=== PATIENT | male | born 1940 | race Caucasian/White ===

== ENCOUNTER 2017-04-29 02:19 | Observation (INO) ==
[2017-04-29] MEDS ORDERED: PANTOPRAZOLE 40 MG VIAL IV STA (03:52)
[2017-04-29] MEDS ORDERED: SODIUM CHLORIDE 0.9% 500 ML IV STA (03:52)
[2017-04-29] MEDS ORDERED: ASPIRIN 325 MG TABLET PO STA (03:52)
[2017-04-29] MEDS ORDERED: THIAMINE INJ 100 MG, FOLIC ACID INJ 1 MG, MAGNESIUM SULF INJ 2 GM, MULTIVITAMIN INJ 10 ... IV ONE (03:52)
[2017-04-29] MEDS ORDERED: ONDANSETRON 4 MG/2 ML VIAL IV STA (03:52)
[2017-04-29] MEDS ORDERED: THIAMINE 200 MG/2 ML VIAL ONE (04:11)
--- NOTE | 2017-04-29 04:20 | Emergency Department Note ---
Chata Jimenez Mantricia, am scribing for, and in the presence of, Humza Nguyen MD 04:17. Wendy Jimenez Charles R, MD, personally performed the services described in this documentation, ascribed by Candy Brizuela in my presence, and it is both accurate and complete 420 . Arrival - Arrival Chief Complaint: Chest Pain ED Nursing Triage Note: Pt arrives via ems from [facility]. Pt states that he was attempting to check into [facility] and developed chest pain while waiting. 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 Mode of Arrival: Stretcher Limitations: No Limitations Source: Patient, Family Time Seen by Provider: 04/29/17 02:41 - History of Present Illness HPI Narrative: Pt is a 77 y/o white male arriving to ED by EMS for evaluation of chest pain that onset today. Pt was admitted to [place] for alcohol abuse today and Daughter states that before she could make it back home,[place] called stating that pt was complaining of chest pain. She then brought pt to ED. PT has a PSHx of open heart surgery in April 2011. No other complaints were reported to ED. Onset (ago): hour(s) Allergies/Adverse Reactions: Allergies Allergy/AdvReac Type Severity Reaction Status Date / Time No Known Allergies Allergy Unverified 04/19/15 16:43 Home Medications: Home Medications Medication Instructions Recorded Confirmed Type Aspirin EC Tab 81 mg PO DAILY 04/19/15 04/29/17 History Atenolol [Tenormin] 50 mg PO DAILY 04/19/15 04/29/17 History Atorvastatin [Lipitor] 10 mg PO DAILY 04/19/15 04/29/17 History Sertraline [Zoloft] 50 mg PO DAILY 04/19/15 04/29/17 History Review of System - Review of System 12 point system: reviewed and no additional remarkable complaints except as stated - Review of System Constitutional: Absent: chills, diaphoresis Eyes: Absent: discharge, pain Respiratory: Absent: cough Cardiovascular: Present: chest pain Medical,Surgical,& Family Hx - Medical History Cardio: History of: CAD, Hypertension Psychological: History of: Psychiatric/Substance Abuse Tx Respiratory: History of: COPD Gastrointestinal: History of: Liver Problems - Surgical History Cardiac Surgeries: Sugical HX of: Cardiac Surgery - Social History Smoking Status: Smoker, status unknown Frequency of Alcohol Use: Unknown Type of Drug Use: Unknown Exam Vital Signs: Vital Signs Temperature 98.5 F 04/29/17 02:19 Pulse Rate 86 04/29/17 03:20 Respiratory Rate 16 04/29/17 03:20 Blood Pressure 110/63 04/29/17 02:19 O2 Sat by Pulse Oximetry 93 L 04/29/17 02:19 - General General appearance: alert, in no apparent distress, other (smells of alcohol) - Head Head exam: Present: atraumatic, normocephalic, normal inspection - Expanded Head Exam Head exam: Present: raccoon eyes - Eye Eye exam: Present: normal appearance, PERRL, EOMI - ENT ENT exam: Present: normal exam, normal oropharynx - Neck Neck exam: Present: normal inspection, full ROM, trachea midline. Absent: tenderness - Chest Chest inspection: Present: normal inspection, symmetric chest wall rise, tenderness, other (ecchymosis to left side of chest) - Respiratory Respiratory exam: Present: normal lung sounds bilaterally - Cardiovascular Cardiovascular exam: Present: regular rate, normal rhythm, normal heart sounds - Abdominal Exam Abdominal exam: Present: soft, diminished bowel sounds. Absent: distention, tenderness, guarding, rebound - Extremities Exam Extremities exam: Present: normal inspection, full ROM, normal capillary refill. Absent: tenderness, pedal edema - Back Exam Back exam: Present: normal inspection, full ROM. Absent: tenderness - Psychiatric Psychiatric exam: Present: normal affect, normal mood - Skin Skin exam: Present: warm, dry, intact, normal color Course - Consultations Consultation #1: Hospitalist will evaluate for possible admission Time: 05:11 Results - Labs CBC & BMP: 04/29/17 02:45 04/29/17 02:45 Lab Results: I have reviewed the patients labs - Diagnostic Findings Procedure: Chest x-ray: image reviewed by me (No pneumothorax no acute findings) , CT: image reviewed by me, report reviewed by me (CT head CT C-spine negative) Critical Care Time Critical Care Time: Yes Total Critical Care Time: 60 Disposition Clinical Impression: Chest pain, Forehead contusion, Anterior chest wall contusion, History of fall , Alcoholism /alcohol abuse Case discussed with: patient, patient's family Disposition: Still a Patient Condition: Stable Time of Disposition: 05:02
[2017-04-29 04:31] LABS: Basophils % 0.3 % (0.0-0.8); Eosinophils # 0.2 10*3/uL (0.0-0.87); Eosinophils % 2.4 % (0.00-10.9); Hematocrit 40.4 VOL% (42.0-52.0); Hemoglobin 14.4 GM/DL (14.0-18.0); Immature Granulocytes % 0.5 %; Immature Granulocytes Absolute 0.04 #; Lymphocytes # 3.3 10*3/uL (1.4-4.0); Lymphocytes % 41.2 % (21.2-54.2); Mean Corpuscular HGB Conc 35.6 GM/DL (32-36); Mean Corpuscular Hemoglobin 34 PG (27-34); Mean Corpuscular Volume 94.8 FL (87-102); Mean Platelet Volume 9.8 FL (9.6-12.0); Monocytes # 0.8 10*3/uL (0.11-0.8); Monocytes % 9.5 % (1.7-12.7); Neutrophils # 3.7 10*3/uL (1.4-7.4); Neutrophils % 46.1 % (38.7-73.9); Platelet Count 118 T/CUMM (130-400); Red Blood Count 4.26 MC/CUMM (3.8-5.5); Red Cell Distribution Width 14.9 % (9.3-17.3); White Blood Count 7.9 T/CUMM (4-12)
[2017-04-29 04:36] LABS: PT Patient Result 11.1 SECS
[2017-04-29 04:40] LABS: Alanine Aminotransferase 84 U/L (16-61); Albumin 3.7 G/DL (3.4-5.0); Alkaline Phosphatase 87 U/L (45-117); Aspartate Amino Transferase 63 U/L (0-37); Blood Urea Nitrogen 17 MG/DL (7-18); Calcium 9.1 MG/DL (8.5-10.1); Glucose 94 MG/DL (74-106); Magnesium 2.4 MG/DL (1.8-2.4); Osmolality,Calculated 274.8 MOS/KG (273-304); Potassium 3.5 MMOL/L (3.5-5.1); Sodium 137 MMOL/L (136-145); Total Protein 6.3 G/DL (6.4-8.3)
[2017-04-29] MEDS ORDERED: ASPIRIN EC 325 MG TABLET PO STA (05:01)
[2017-04-29] MEDS ORDERED: NITROGLYCERIN 2% OINT 1 INCH/GM PACK TOP STA (05:01)
[2017-04-29] MEDS ORDERED: ONDANSETRON 4 MG/2 ML VIAL ONE (05:02)
[2017-04-29] MEDS ORDERED: ASPIRIN 325 MG TABLET ONE (05:02)
[2017-04-29] MEDS ORDERED: PANTOPRAZOLE 40 MG VIAL IV ONE (05:02)
[2017-04-29 05:23] LABS: Barbiturates Screen,Urine Negative (Negative); Benzodiazepines Screen,Urine Negative (Negative); Cannabinoid Screen,Urine Negative (Negative); Opiate Screen,Urine Negative (Negative); Phencyclidine Screen,Urine Negative (Negative)
[2017-04-29 05:31] LABS: Apearance,Urine CLEAR (Clear); Bacteria,Urine Occasional /HPF (Few); Bilirubin,Urine Negative (Negative); Blood, Urine Small mg/dL (Negative); Glucose,Urine (UA) Negative (Negative); Hyaline Casts,Urine 1 /LPF (0-3); Ketones,Urine Negative (Negative); Mucus,Urine Occasional /LPF (Occasional); Nitrite,Urine Negative (Negative); Protein,Urine Negative; RBC,Urine 1 /HPF (0-4); Squamous Epithelial Cell,Urine Occasional /HPF (0-10); Urine Color Yellow (Yellow); Urine Specific Gravity 1.006 (1.001-1.035); Urine Urobilinogen < 2.0 EU/DL (0.2-1.0); WBC,Urine 1 /HPF (0-6)
[2017-04-29 05:51] LABS: Hypochromasia 1+; Lymphocytes 46 % (20-55); Segmented Neutrophils 45 % (50-85); Total Cells Counted 100
[2017-04-29 05:52] LABS: Atypical Lymphocytes Few; Microcytosis 1+; Platelet Estimate Decreased
[2017-04-29] MEDS ORDERED: LORazepam 2 MG/1 ML VIAL IV PRN (06:22)
--- NOTE | 2017-04-29 06:26 | Hospitalist History & Physical ---
Assessment and Plan (1) Alcoholism /alcohol abuse Status: Acute Assessment and plan: Patient should be washing the hospital for possibility of withdrawal. I will give him some Ativan IV as needed for any signs of withdrawal. He will be on a monitored bed would need to pay attention to the patient's tachycardia. Most of the time if the patient is going to go into alcohol withdrawal tachycardia is the first thing to notice. Current Visit: Yes (2) Chest pain Status: Acute Assessment and plan: This most likely is musculoskeletal. Pain is reproducible. However will call exactly [facility] would like us to see with her mother this is not a coronary ischemia. Patient does have history of coronary artery disease. Will check serial troponins and verify this for them. Current Visit: Yes (3) History of fall Status: Acute Assessment and plan: Patient has multiple contusions I think the chest pain is because of that the injury to the face does not seem to be very serious because CT evaluation of the orbits is normal Current Visit: Yes History of Present Illness Chief complaint: Chest pain History of present illness: Mr. George is a 77 year old male presented to the ED via EMS picked him up at [facility] where he had checked himself and for alcohol abuse rehab. Started having chest pains today. He has a history of a fall and trauma to the left side of his upper body. This pain is purely reproducible but the extent of his complaint were mostly noted today at [facility] and because of that complaint patient was sent to the emergency room to make sure that there is no involvement of his heart. No history of coronary disease history of hypertension history of hypercholesterolemia history of depression and a history of alcohol overuse Home Medications Medication Instructions Recorded Confirmed Type Aspirin EC Tab 81 mg PO DAILY 04/19/15 04/29/17 History Atenolol [Tenormin] 50 mg PO DAILY 04/19/15 04/29/17 History Atorvastatin [Lipitor] 10 mg PO DAILY 04/19/15 04/29/17 History Sertraline [Zoloft] 50 mg PO DAILY 04/19/15 04/29/17 History Allergies Allergy/AdvReac Type Severity Reaction Status Date / Time No Known Allergies Allergy Unverified 04/19/15 16:43 Medical,Surgical,& Family Hx - Medical History Cardio: History of: CAD, Hypertension Psychological: History of: Psychiatric/Substance Abuse Tx Respiratory: History of: COPD Gastrointestinal: History of: Liver Problems - Surgical History Cardiac Surgeries: Sugical HX of: Cardiac Surgery - Social History Smoking Status: Smoker, status unknown Frequency of Alcohol Use: Unknown Type of Drug Use: Unknown Review of systems: Attempt to get a 12 point system assessment however the patient was very sleepy and not responding to questions. What stands out it is chief complaint and history of presenting illness. He will grimace when palpating his chest cage especially on the left, front of the anterior chest cage. There is a bruise in the left upper quadrant. She has had a CT scan of the abdomen CT scan of the head attention paid to the infraorbital areas and no injuries are noted by these imagings. Exam - Constitutional Vitals: Period Temp Pulse Resp BP Sys/Han Pulse Ox Last 24 Hr 98.3 F-98.5 F 86-88 16-18 110-110/63-63 93 General appearance: over weight - Head Head exam: Present: normocephalic, other (She has a bruise below the left eye.) - Eye Eye exam: Present: EOMI Pupils: Present: MORE - ENT ENT exam: Present: normal exam, normal oropharynx - Neck Neck exam: Present: other (Is a supple neck no JVD midline trachea) - Respiratory Respiratory exam: Present: clear to auscultation bilaterally - Cardiovascular Cardiovascular exam: Present: regular rate and rhythm - GI/Abdominal GI/Abdominal exam: Present: normal bowel sounds, soft, other (Bruises noted in the left upper quadrant) - Extremities Exam Extremities exam: Present: normal inspection - Neurological Exam Neurological exam: Present: other (Very sleepy and not responding to questions. I cannot assess his orientation and alertness) - Psychiatric Psychiatric exam: Present: other (Very sleep) - Skin Skin exam: Present: other (Noted ecchymosis as mentioned above otherwise his skin is normal) Results - Labs CBC & BMP: 04/29/17 02:45 04/29/17 02:45 Lab Results: I have reviewed the past 24 hour labs
--- NOTE | 2017-04-29 06:32 | EKG Report ---
Stationary ECG Study [facility] ER Test Date: 04/29/2017 2:34:17 AM Pat Name: QASIM ARECHIGA Department: Room: Gender: M Imaging Engineer: ANSHUL MCGINNIS : 1940 Requested by: Humza Blanchard Order Number: [id number] Reading MD: CORBIN NUNEZ Intervals [place] Rate: 87 P: 26 SD: 132 QRS: 72 QRSD: 93 T: 63 QT: 353 QTc: 397 Interpretive Statements SINUS RHYTHM POSSIBLE ANTERIOR MYOCARDIAL INFARCTION, PROBABLY OLD Electronically Signed On 04-29-17 10:46:39 CDT by CORBIN NUNEZ [email or web address]
--- NOTE | 2017-04-29 06:56 | CT Report ---
Referring physician: Humza Nguyen Exam: CT brain without contrast Date: April 29, 2017 Comparison: CT brain without contrast March 03, 2014 Reason: Status post fall, left eye bruising/hematoma, blunt trauma, initial encounter The patient was an Emergency Department patient on April 29, 2017. Preliminary report was provided by [facility]. Technique: Axial images of the head were obtained without the use of contrast. Findings: There is mild generalized cerebral and cerebellar atrophy/volume loss and probable chronic microvascular change. There is also again prominent CSF at the cisterna magna. This could represent a marysol cisterna magna or less likely an arachnoid cyst. The ventricles are mildly prominent but stable, likely secondary to central atrophy/volume loss. No midline shift is present. There is no evidence of recent intracranial hemorrhage, abnormal mass effect or an acute infarction. No acute osseous process is seen. Note is made of prominent calcified plaque at the intracranial internal carotid arteries. The mastoid air cells and visualized paranasal sinuses are clear. Impression: 1. No acute intracranial process is identified. 2. Chronic intracranial findings, similar to before. The CT exam was performed using one or more of the following dose reduction techniques: Automated exposure control and adjustment of the mA and/or kV according to patient size. PROCEDURE INTERPRETED AT [facility] DEPARTMENT OF RADIOLOGY Final Report Signed by: Dr. Mathieu Fairbanks
--- NOTE | 2017-04-29 07:02 | CT Report ---
Exam: CT facial bones without contrast Date: April 29, 2017 Reason: Status post fall, blunt trauma to face, hematoma/bruising around left eye, initial encounter Comparison: None Preliminary report was provided by [facility]. Technique: Axial images of the facial bones were obtained without the use of contrast. Sagittal and coronal reformatted images were also acquired. Findings: No acute fracture or osseous destructive process is identified. The temporomandibular joints are intact. The patient is edentulous with dental hardware noted at the mandible. The mastoid air cells and middle ear cavities are clear. There is minimal mucosal thickening at the left frontoethmoidal recess. No air-fluid levels are seen within the paranasal sinuses. The ostiomeatal complexes are patent bilaterally. The nasal septum is slightly serpiginous, and there is a small left nasal septal spur. No significant madeleine bullosa are seen. There is mild subcutaneous fat stranding in the left periorbital/preseptal region and overlying the left maxillary sinus. This is likely related to recent trauma. No acute intraorbital process is identified. The visualized airway appears patent. Calcified plaque is noted at the carotid bifurcations bilaterally. Impression: No acute fracture is identified. PROCEDURE INTERPRETED AT [facility] DEPARTMENT OF RADIOLOGY Final Report Signed by: Dr. Mathieu Fairbanks
--- NOTE | 2017-04-29 07:12 | CT Report ---
Exam: CT cervical spine without contrast Date: April 29, 2017 Comparison: CT cervical spine March 03, 2014, CT chest March 03, 2014 Reason: Status post fall, head and facial injury, hematoma around left eye, blunt trauma, initial encounter Preliminary report was provided by [facility]. Technique: Axial images of the cervical spine were obtained without the use of contrast. Sagittal and coronal reformatted images were also acquired. Findings: The cervical vertebral bodies are normal in height, and sagittal alignment is within normal limits. A stable 0.9 cm lucency is seen within the posterior aspect of the C3 vertebral body. The stability suggests a benign process such as an intraosseous cyst or hemangioma. There is moderate degenerative change at the atlantoaxial joint and mild multilevel anterior marginal spurring. Moderate disc space narrowing and endplate degenerative change are seen at C4-C5 and C6-C7. This is most prominent at C6-C7. No acute fracture is identified. At C2-C3, there is moderate right facet arthropathy. No spinal canal stenosis or neuroforaminal narrowing is seen. At C3-C4, there is a minimal diffuse posterior disc osteophyte complex, uncovertebral hypertrophy and severe left facet arthropathy. No spinal canal stenosis is seen, but there is mild right neuroforaminal narrowing and moderate left neuroforaminal narrowing. At C4-C5, there is a mild posterior disc osteophyte complex which is slightly asymmetric to the right. There is also uncovertebral hypertrophy, mild left facet arthropathy and moderate right facet arthropathy. This produces narrowing of the right lateral recess but no significant overall narrowing of the spinal canal. There is also severe right neuroforaminal narrowing and mild to moderate left neuroforaminal narrowing. At C5-C6, there is a mild diffuse posterior disc osteophyte complex, uncovertebral hypertrophy and mild to moderate bilateral facet arthropathy. No spinal canal stenosis is seen, but there is mild bilateral neuroforaminal narrowing. At C6-C7, there is a mild diffuse posterior disc osteophyte complex, uncovertebral hypertrophy and mild left facet arthropathy. No spinal canal stenosis is seen, but there is mild left neuroforaminal narrowing and moderate right neuroforaminal narrowing. At C7-T1, there is minimal bilateral facet arthropathy. No spinal canal stenosis or neuroforaminal narrowing is seen. There is emphysema at the lung apices. A small irregular opacity is also seen within the right lung apex but has not obviously changed since a prior CT chest performed on March 03, 2014. Emphysema is also noted at the lung apices. There is scattered calcified plaque at the arteries, mainly at the carotid bifurcations. No abnormal prevertebral soft tissue swelling is seen. Impression: 1. No acute fracture is identified at the cervical spine. 2. Multilevel degenerative change at the cervical spine as above, similar to before. 3. Emphysema at the lung apices and probable mild scarring at the right lung apex. PROCEDURE INTERPRETED AT [facility] DEPARTMENT OF RADIOLOGY Final Report Signed by: Dr. Mathieu Fairbanks
--- NOTE | 2017-04-29 08:04 | EKG Report ---
Stationary ECG Study [facility] Test Date: 04/29/2017 8:05:13 AM Pat Name: QASIM ARECHIGA Department: Room: 294 Gender: M Hop Farmer: JENNY : 1940 Requested by: Humza Blanchard Order Number: [id number] Reading MD: CORBIN NUNEZ Intervals [place] Rate: 75 P: 79 ID: [id number] QRS: 76 QRSD: 96 T: 79 QT: 386 QTc: 414 Interpretive Statements SINUS RHYTHM WITH PROLONGED ID INTERVAL Electronically Signed On 04-29-17 10:49:35 CDT by CORBIN NUNEZ [email or web address]
--- NOTE | 2017-04-29 08:19 | XRay Report ---
Exam: XR ribs LT w pa chest Date: 04/29/2017 3:52 AM Comparison: 01/16/2016 Indication: Left rib pain after fall Technique:[PA chest with three-view left rib] Findings: The heart is borderline in size with prior median sternotomy. Calcification in the aortic knob. Chronic scarring with calcified granulomata/nodes including a 28 mm finding in the right infrahilar location. No evidence of a pneumothorax. Old healed left seventh rib fracture. No obvious acute rib fracture identified. Degenerative changes are noted. Impression: Status post median sternotomy with chronic scarring in the lungs. No pneumothorax. Old healed left seventh rib fracture with no obvious acute rib fracture. PROCEDURE INTERPRETED AT [facility] DEPARTMENT OF RADIOLOGY Final Report Signed by: Dr. Minerva Langley
[2017-04-29] MEDS ORDERED: ATENOLOL 50 MG TABLET PO SCH (09:00)
[2017-04-29] MEDS ORDERED: ATORVASTATIN 10 MG TABLET PO SCH (09:00)
[2017-04-29] MEDS ORDERED: SERTRALINE 50 MG TABLET PO SCH (09:00)
[2017-04-29] MEDS ORDERED: ASPIRIN EC 325 MG TABLET PO SCH (09:00)
--- NOTE | 2017-04-29 09:34 | EKG Report ---
Stationary ECG Study [facility] Test Date: 04/29/2017 9:35:08 AM Pat Name: QASIM ARECHIGA Department: Room: 294 Gender: M Stock Associate: JENNY : 1940 Requested by: Humza Blanchard Order Number: [id number] Reading MD: CORBIN NUNEZ Intervals [place] Rate: 81 P: 78 GA: 196 QRS: 71 QRSD: 96 T: 84 QT: 374 QTc: 411 Interpretive Statements SINUS RHYTHM Electronically Signed On 04-29-17 10:50:58 CDT by CORBIN NUNEZ [id number]
[2017-04-29] MEDS ORDERED: SODIUM CHLORIDE 0.9% 1,000 ML IV SCH (11:00)
[2017-04-29] MEDS ORDERED: MULTIVITAMIN (BEROCCA) TABLET PO SCH (11:00)
[2017-04-29] MEDS ORDERED: THIAMINE 100 MG TABLET PO SCH (11:00)
[2017-04-29 12:39] VITALS: BP 118/55
--- NOTE | 2017-04-29 13:31 | Discharge Summary ---
Hospital Course - Hospital Course Hospital Course: Mr George checked himself into [facility] yesterday and then complained of chest pain. He was brought here by ambulance and was evaluated in the ER. He ruled out for MT with EKG that did not show changes and troponins less than 0.015 times 3. His creatinine is 1.4, and the last here was under 1. He has had IVF since being here and is eating and drinking. I recommend recheck at his PCP in a week or so. He will return to [facility] today to begin treatment for alcohol dependence. It has been 2 days since his last drink. He has no tremors, hallucinations, tachycardia, HTN or other sign of withdrawal at this time. The staff at [facility] will watch for alcohol withdrawal. He will continue his usual meds and in addition take thiamine and MVI. - Time spent with patient Time with patient DS: Greater than 30 minutes (exam, review of records, medicine reconciliation, documentation, discharge planning.) Diagnosis - Discharge Diagnosis (1) Musculoskeletal chest pain Status: Acute (2) Forehead contusion Status: Acute (3) History of fall Status: Chronic (4) Alcoholism /alcohol abuse Status: Chronic Specialty Discharge - Follow Up or Referrals Follow up with: your, PCP [Other] - 2 Weeks ([facility] to check creatinine) Discharge Plan - Discharge Data Disposition: Disch/Xfer to Psych Hos Condition at Discharge: Stable Discharge Diet: heart healthy Activity: resume usual activities as tolerated - Discharge Medications New Multivitamin (Berocca) [Berocca] 1 tablet PO DAILY tablet Thiamine Tab [Vitamin B1 Tab] 100 mg PO DAILY tablet Continue Aspirin EC Tab 81 mg PO DAILY Sertraline [Zoloft] 50 mg PO DAILY Atorvastatin [Lipitor] 10 mg PO DAILY Atenolol [Tenormin] 50 mg PO DAILY - Follow Up or Referral - Forms/Instructions Exam - Constitutional Vitals: Period Temp Pulse Resp BP Sys/Han Pulse Ox Last 24 Hr 98.3 F-99.0 F 55-88 16-20 110-118/43-68 93-99 General appearance: no acute distress, over weight - Head Head exam: Present: normocephalic, contusion (forehead) - Eye Eye exam: Present: EOMI. Absent: scleral icterus Pupils: Present: MORE - ENT ENT exam: Present: normal external ear exam - Respiratory Respiratory exam: Present: clear to auscultation bilaterally - Cardiovascular Cardiovascular exam: Present: regular rate and rhythm, other (chest tender to palpation over left side particularly in area of bruising from prior falls.) - GI/Abdominal GI/Abdominal exam: Present: normal bowel sounds, soft. Absent: tenderness - Extremities Exam Extremities exam: Absent: edema - Neurological Exam Neurological exam: Present: alert, oriented X3 - Skin Skin exam: Present: warm, dry Discharge Results Procedures and tests throughout hospitalization: Pending Orders 04/30/17 04:00 Basic Metabolic Panel IN AM Labs on day of discharge: Labs from last 24 hours 04/29/17 04/29/17 04/29/17 09:58 07:30 02:45 WBC RBC Hgb Hct MCV MCH MCHC RDW Plt Count MPV Neut % (Auto) Lymph % (Auto) [place] % (Auto) Eos % (Auto) Baso % (Auto) Neut # (Auto) Lymph # (Auto) [place] # (Auto) Eos # (Auto) Baso # (Auto) Total Counted Immature Gran % Nucleated RBC % Immature Gran # Segmented Neutrophils Lymphocytes Monocytes Basophils Nucleated RBCs # Atypical Lymphocytes Platelet Estimate Hypochromasia Microcytosis INR PT Patient/Control Mix Sodium Potassium Chloride Carbon Dioxide Anion Gap BUN Creatinine GFR Calculation BUN/Creatinine Ratio Glucose Calculated Osmolality Calcium Magnesium Total Bilirubin AST ALT Alkaline Phosphatase Troponin I < 0.015 < 0.015 < 0.015 B-Natriuretic Peptide Total Protein Albumin Globulin Albumin/Globulin Ratio Lipase Urine Color Urine Appearance Urine pH Ur Specific [place] Urine Protein Urine Glucose (UA) Urine Ketones Urine Blood Urine Nitrate Urine Bilirubin Urine Urobilinogen Urine Leukocytes Urine RBC Urine WBC Ur Squamous Epith Cells Urine Bacteria Hyaline Casts Urine Mucus Ur Culture Indicated? Urine Opiates Screen Ur Barbiturates Screen Ur Phencyclidine Scrn U Amphetamine/Methamph U Benzodiazepines Scrn U Cocaine Metab Screen U Cannabinoids Screen Serum Alcohol 04/29/17 04/29/17 04/29/17 02:45 02:45 02:45 WBC 7.9 RBC 4.26 Hgb 14.4 Hct 40.4 L MCV 94.8 MCH 34 MCHC 35.6 RDW 14.9 Plt Count 118 L MPV 9.8 Neut % (Auto) 46.1 Lymph % (Auto) 41.2 [place] % (Auto) 9.5 Eos % (Auto) 2.4 Baso % (Auto) 0.3 Neut # (Auto) 3.7 Lymph # (Auto) 3.3 [place] # (Auto) 0.8 Eos # (Auto) 0.2 Baso # (Auto) 0.0 Total Counted 100 Immature Gran % 0.5 Nucleated RBC % 0.0 Immature Gran # 0.04 Segmented Neutrophils 45 L Lymphocytes 46 Monocytes 8 Basophils 1.0 H Nucleated RBCs # 0.00 Atypical Lymphocytes Few Platelet Estimate Decreased Hypochromasia 1+ Microcytosis 1+ INR PT Patient/Control Mix Sodium Potassium Chloride Carbon Dioxide Anion Gap BUN Creatinine GFR Calculation BUN/Creatinine Ratio Glucose Calculated Osmolality Calcium Magnesium Total Bilirubin AST ALT Alkaline Phosphatase Troponin I B-Natriuretic Peptide 13 Total Protein Albumin Globulin Albumin/Globulin Ratio Lipase Urine Color Urine Appearance Urine pH Ur Specific [place] Urine Protein Urine Glucose (UA) Urine Ketones Urine Blood Urine Nitrate Urine Bilirubin Urine Urobilinogen Urine Leukocytes Urine RBC Urine WBC Ur Squamous Epith Cells Urine Bacteria Hyaline Casts Urine Mucus Ur Culture Indicated? Urine Opiates Screen Negative Ur Barbiturates Screen Negative Ur Phencyclidine Scrn Negative U Amphetamine/Methamph Negative U Benzodiazepines Scrn Negative U Cocaine Metab Screen Negative U Cannabinoids Screen Negative Serum Alcohol 04/29/17 04/29/17 04/29/17 02:45 02:45 02:45 WBC RBC Hgb Hct MCV MCH MCHC RDW Plt Count MPV Neut % (Auto) Lymph % (Auto) [place] % (Auto) Eos % (Auto) Baso % (Auto) Neut # (Auto) Lymph # (Auto) [place] # (Auto) Eos # (Auto) Baso # (Auto) Total Counted Immature Gran % Nucleated RBC % Immature Gran # Segmented Neutrophils Lymphocytes Monocytes Basophils Nucleated RBCs # Atypical Lymphocytes Platelet Estimate Hypochromasia Microcytosis INR 1.0 PT Patient/Control Mix 11.1 Sodium 137 Potassium 3.5 Chloride 100 Carbon Dioxide 28 Anion Gap 12.5 BUN 17 Creatinine 1.40 H GFR Calculation 58 BUN/Creatinine Ratio 12.00 Glucose 94 Calculated Osmolality 274.8 Calcium 9.1 Magnesium 2.4 Total Bilirubin 0.40 AST 63 H ALT 84 H Alkaline Phosphatase 87 Troponin I B-Natriuretic Peptide Total Protein 6.3 L Albumin 3.7 Globulin 2.6 Albumin/Globulin Ratio 1.4 Lipase 367.0 Urine Color Yellow Urine Appearance Clear Urine pH 5.0 Ur Specific [place] 1.006 Urine Protein Negative Urine Glucose (UA) Negative Urine Ketones Negative Urine Blood Small Urine Nitrate Negative Urine Bilirubin Negative Urine Urobilinogen < 2.0 H Urine Leukocytes Trace Urine RBC 1 Urine WBC 1 Ur Squamous Epith Cells Occasional Urine Bacteria Occasional Hyaline Casts 1 Urine Mucus Occasional Ur Culture Indicated? Not indicated Urine Opiates Screen Ur Barbiturates Screen Ur Phencyclidine Scrn U Amphetamine/Methamph U Benzodiazepines Scrn U Cocaine Metab Screen U Cannabinoids Screen Serum Alcohol < 15 L - Additional Comments rib films- no fractures head CT- no acute changes face CT- no fracture Cspine CT- no fracture of acute findings DS: Provider Date of admission: 04/29/17 06:19 Primary care physician: . No PCP Attending physician on admission: Ranjit Wells MD Discharging clinician: Alison German MD
--- NOTE | 2017-04-30 09:44 | EKG Report ---
Stationary ECG Study [facility] ER Test Date: 04/29/2017 2:27:45 AM Pat Name: QASIM ARECHIGA Department: Room: 294 Gender: M Apartment Coordinator: : 1940 Requested by: Humza Blanchard Order Number: [id number] Samia MD: TAVARES MARIANO Intervals [place] Rate: 90 P: -22 SD: 176 QRS: 75 QRSD: 103 T: 34 QT: 262 QTc: 309 Interpretive Statements SINUS RHYTHM NONSPECIFIC T-WAVE ABNORMALITY Electronically Signed On 05-01-17 06:59:20 CDT by TAVARES MARIANO [email or web address]
== END 2017-04-29 17:02 ==
LOC: EDBD → EDUNIT# → N.EDINP 02:19 → N.ED 02:19 → SUATTDRO 06:19 → N.TELEN 06:45
PROVIDERS: ADMIT Internal Medicine Infectious Disease; ATTEND Internal Medicine